=== PATIENT | female | born 1975 | race Hispanic/Latino ===

== ENCOUNTER 2018-12-23 21:25 | Emergency (ER) | payer SELFPAY ==
[~2018-12-23] VITALS: Ht 162.6 cm; Wt 122.5 kg
[2018-12-23 23:03] LABS: CLARITY,URINE CLOUDY (CLEAR); COLOR,URINE YELLOW (YELLOW); LEUKOCYTE ESTERASE ,URINE NEGATIVE (NEGATIVE); NITRITE,URINE NEGATIVE (NEGATIVE); PROTEIN,URINE DIPSTICK NEGATIVE (NEGATIVE)
[2018-12-23 23:04] LABS: BACTERIA,URINE MODERATE /HPF; BILIRUBIN,URINE NEGATIVE (NEGATIVE); EPITHELIAL CELLS,URINE FEW /LPF; KETONES,URINE NEGATIVE (NEGATIVE); PREGNANCY TEST, URINE NEGATIVE (NEGATIVE); RBC,URINE >50 /HPF (0-5); URINE UROBILINOGEN 0.2 mg/dL (0.2 - 1); WBC,URINE (MAN) 0-5 /HPF (0-5)
--- NOTE | 2018-12-23 23:06 | Diagnostic Imaging Report ---
CT BRAIN WO HISTORY: Headache, pain behind right eye COMPARISON: None. TECHNIQUE: Noncontrast axial scans were obtained from skull base to the vertex. Coronal and sagittal reconstructions obtained from the axial data. One or more of the following dose reduction techniques were used: Automated exposure control, adjustment of the mA and/or kV according to patient size, and/or utilization of iterative reconstruction technique. DISCUSSION: Scalp/Skull: Unremarkable. Brain sulci: Appropriate for patient's age. Ventricles: Normal in size and configuration. No hydrocephalus. Extra-axial spaces: No masses or fluid collections. Minimal carotid siphon calcifications are present. Parenchyma: No abnormal densities. No masses, hemorrhage, or large vascular territory acute infarct. Dural sinuses: No abnormal densities. Sellar/Suprasellar region: Intact. Skull base: Intact. Incidental findings: Mild left frontonasal recess mucosal thickening is partially visualized. The visualized orbits are unremarkable. IMPRESSION: No acute intracranial abnormalities. Signed by: Dr. You Herrera M.D. on 12/23/2018 11:02 PM
[2018-12-23 23:29] VITALS: BP 110/76
== END 2018-12-23 23:37 | disposition home or self-care (01) ==
LOC: ER 21:25
DX: G43.909 Migraine, unspecified, not intractable, without status migrainosus (principal)
CPT/HCPCS: 70450; 81001; 81025; 99284